=== PATIENT | male | born 1960 | race Two or more races ===

== ENCOUNTER 2018-12-19 10:27 | Inpatient (IN) | payer OTHER ==
[~2018-12-19] VITALS: Ht 182.9 cm; Wt 108.0 kg
[2019-01-10] MEDS ORDERED: GABAPENTIN600 MG PO (10:00)
[2019-01-10] MEDS ORDERED: TIZANIDINE HCL4 M1 PO (10:01)
[2019-01-10] MEDS ORDERED: FINOFIBRATE PO (10:02)
[2019-01-10] MEDS ORDERED: ESKALITH300 MG PO (10:02)
[2019-01-10] MEDS ORDERED: AMBIEN10 MG PO (10:03)
[2019-01-10] MEDS ORDERED: VELAFAXINE PO (10:03)
[2019-01-10] MEDS ORDERED: ALPRAZOLA PO (10:04)
[2019-01-10] MEDS ORDERED: ACID CONTROLLER20 MG PO (10:05)
[2019-01-14] MEDS ORDERED: ALPRAZOLAM2 MG PO (08:20)
[2019-01-14] MEDS ORDERED: VENLAFAXINE HC150 MG PO (08:21)
[2019-01-14] MEDS ORDERED: FENOFIBRATE145 MG PO (08:21)
[2019-01-18] MEDS ORDERED: KETO10TA2 PO (07:58)
[2019-01-18] MEDS ORDERED: INTESTINEX680 M1 PO (07:59)
[2019-01-18] MEDS ORDERED: ULTRACET PO (07:59)
== END 2019-01-18 12:57 | disposition home or self-care (01) | DRG 331 ==
LOC: SURG 01-10 08:30 → O/R 01-14 06:05 → SURG 01-14 06:05
PROVIDERS: ADMIT Surgery
PROC: 07TD4ZZ Resection of Aortic Lymphatic, Percutaneous Endoscopic Approach (ICD-10-PCS; 2019-01-14)
PROC: 0DTF4ZZ Resection of Right Large Intestine, Percutaneous Endoscopic Approach (ICD-10-PCS; principal; 2019-01-14 12:00)
DX: D37.4 Neoplasm of uncertain behavior of colon (principal); R19.4 Change in bowel habit; D12.0 Benign neoplasm of cecum; K63.89 Other specified diseases of intestine; K63.5 Polyp of colon; R59.0 Localized enlarged lymph nodes

== ENCOUNTER 2020-02-25 10:23 | Day surgery (SDC) | payer OTHER ==
[~2020-02-25 10:23] MED LIST: ACID CONTROLLER20 MG PO; ALPRAZOLA PO; ALPRAZOLAM2 MG PO; AMBIEN10 MG PO; ESKALITH300 MG PO; FENOFIBRATE145 MG PO; FINOFIBRATE PO; GABAPENTIN600 MG PO; INTESTINEX680 M1 PO; KETO10TA2 PO; TIZANIDINE HCL4 M1 PO; ULTRACET PO; VELAFAXINE PO; VENLAFAXINE HC150 MG PO
== END 2020-02-25 15:10 | disposition home or self-care (01) ==
LOC: AMB-ENDOS 10:23
PROVIDERS: ATTEND Surgery
DX: K63.5 Polyp of colon (principal); K64.8 Other hemorrhoids; Z20.828 Contact with and (suspected) exposure to other viral communicable diseases